=== PATIENT | female | born 1990 | race Hispanic/Latino ===

== ENCOUNTER 2016-12-24 02:49 | Emergency (ER) | payer OTHER ==
[2016-12-24 03:23] LABS: RBC URINE < 1 /hpf (0-3); URINE BILIRUBIN NEGATIVE (NEGATIVE); URINE BLOOD NEGATIVE (NEGATIVE); URINE CALCIUM OXALATE CRYSTALS OCC /hpf (<OCC); URINE COLOR Yellow (YELLOW); URINE GLUCOSE (UA) NORMAL (Normal); URINE KETONE TRACE mg/dL (NEGATIVE); URINE LEUKOCYTE ESTERASE NEG Leu/uL (Negative); URINE PROTEIN NEGATIVE (NEGATIVE); URINE UROBILINOGEN NORMAL mg/dL (0.2-1.0); WBC URINE 1 /hpf (0-5)
[2016-12-24] MEDS ORDERED: cefTRIAXone (Rocephin) 250 mg Inj IM STA (05:25)
[2016-12-24 05:41] VITALS: BP 119/73; PULSE 76; RESP 18; TEMP 98
[2016-12-24 05:42] VITALS: O2SAT 98
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
== END 2016-12-24 05:47 | disposition home or self-care (01) ==
LOC: C.ER 02:49
DX: Z04.41 Encounter for examination and observation following alleged adult rape (principal)
CPT/HCPCS: 81001; 84703; 96372; 99285; J0696